=== PATIENT | male | born 1990 | race African-American/Black ===

== ENCOUNTER 2024-07-15 12:46 | Emergency (ER) | payer OTHER ==
[~2024-07-15] VITALS: Ht 172.7 cm; Wt 114.0 kg
[2024-07-15 12:51] VITALS: BP 157/109; PULSE 85; RESP 18; TEMP 36.9; O2SAT 98
[2024-07-15] MEDS: KETOROLAC 30MG/ML VIAL IM ONE (13:49)
[2024-07-15] MEDS ORDERED: IBUP-2029 MT (14:49)
[2024-07-15] MEDS ORDERED: CYCL10TA21 MT (14:49)
== END 2024-07-15 15:32 | disposition home or self-care (01) ==
LOC: ER 12:46
DX: M25.512 Pain in left shoulder (principal); M54.2 Cervicalgia; E11.9 Type 2 diabetes mellitus without complications; V89.2XXA Person injured in unspecified motor-vehicle accident, traffic, initial encounter; Y93.89 Activity, other specified; Y92.410 Unspecified street and highway as the place of occurrence of the external cause; Y99.8 Other external cause status
CPT/HCPCS: 73030; 70450; 72125; 96372; 99285; J1885; Z7610 ×3; A4606